=== PATIENT | female | born 1945 | race Caucasian/White ===

== ENCOUNTER 2019-01-04 11:27 | Outpatient (CLI) | payer OTHER | END 2019-01-04 11:40 | disposition home or self-care (01) | LOC: NUCLEAR 11:27 | DX: M81.0 Age-related osteoporosis without current pathological fracture (principal) ==

== ENCOUNTER 2020-12-30 06:58 | Day surgery (SDC) | payer OTHER | END 2020-12-30 10:40 | disposition home or self-care (01) | LOC: AMB-ENDOS 06:58 | PROVIDERS: ATTEND Colon & Rectal Surgery | DX: K62.89 Other specified diseases of anus and rectum (principal); K64.8 Other hemorrhoids; Z20.822 Contact with and (suspected) exposure to COVID-19; Z12.11 Encounter for screening for malignant neoplasm of colon ==

== ENCOUNTER 2021-02-18 08:26 | Outpatient (CLI) | payer OTHER | END 2021-02-18 08:31 | disposition home or self-care (01) | LOC: TOM 08:26 | PROVIDERS: ATTEND Colon & Rectal Surgery | DX: K57.30 Diverticulosis of large intestine without perforation or abscess without bleeding (principal); K92.1 Melena; Z85.048 Personal history of other malignant neoplasm of rectum, rectosigmoid junction, and anus; Z12.11 Encounter for screening for malignant neoplasm of colon; I70.8 Atherosclerosis of other arteries ==

== ENCOUNTER 2021-06-16 12:29 | Outpatient (CLI) | payer OTHER | END 2021-06-16 12:39 | disposition home or self-care (01) | LOC: TOM 12:29 | PROVIDERS: ATTEND Psychiatry & Neurology Clinical Neurophysiology | DX: F01.50 Vascular dementia, unspecified severity, without behavioral disturbance, psychotic disturbance, mood disturbance, and anxiety (principal); G30.1 Alzheimer's disease with late onset ==

== ENCOUNTER 2023-08-18 15:19 | Emergency (ER) | payer OTHER ==
[~2023-08-18] VITALS: Ht 154.9 cm; Wt 49.9 kg
[2023-08-18] MEDS ORDERED: 0.9 % SODIUM CHLORIDE 500 ML IV ONE (16:30)
[2023-08-18 16:58] LABS: HEMATOCRIT 41.2 % (36.0-45.00); HEMOGLOBIN 13.9 g/dL (12.0-15.00); MEAN CELL VOLUME 91.8 fL (80.00-100.00); MEAN CORPUSCULAR HGB CONC 33.8 g/dl (32.0-36.0); PLATELET COUNT 294 K/uL (150-450); RED BLOOD COUNT 4.49 M/uL (4.00-6.00)
[2023-08-18 19:06] LABS: ALBUMIN 3.1 gm/dL (3.4-5.0); BILIRUBIN TOTAL 1.43 mg/dL (0.3-1.2); CALCIUM 9.7 mg/dL (8.5-10.1); CREATININE SERUM 1.18 mg/dL (0.55-1.02); GFR 44.18; GLOBULINA 4.1 G/DL (2.4-3.5); POTASSIUM 3.66 mEq/L (3.5-5.1); TOTAL PROTEIN 7.2 gm/dL (6.4-8.2)
[2023-08-18 21:31] LABS: PH,URINE 5.5 (5.0-8.0); URINE APPEARANCE Cloudy; URINE BILIRRUBIN Small (NEGATIVE); URINE BLOOD NHT; URINE COLOR Dark Yellow; URINE GLUCOSE Negative (NEGATIVE); URINE LEUKOCYTE Small; URINE NITRATE Negative; URINE PROTEIN 30 (NEGATIVE)
[2023-08-18 21:35] LABS: URINE EPITHELIAL CELLS 3.2 uL (0.0-38.8); URINE RBC 100.5 uL (0.0-20.8)
[2023-08-18 21:46] LABS: URINE BACTERIA > 9821.5 uL (0.0-1933); URINE WBC 1.7 uL (0.0-23.2)
[2023-08-18] MEDS ORDERED: CEFTRIAXONE SODIUM 1,000 MG VIAL IV ONE (22:00)
[2023-08-18] MEDS ORDERED: MACRODANTIN100 M1 PO (22:35)
== END 2023-08-18 23:31 ==
LOC: ER 15:19
PROVIDERS: General Practice; Nurse Practitioner Family
DX: N39.0 Urinary tract infection, site not specified (principal); R53.1 Weakness; Z91.041 Radiographic dye allergy status; F03.90 Unspecified dementia, unspecified severity, without behavioral disturbance, psychotic disturbance, mood disturbance, and anxiety; N18.30 Chronic kidney disease, stage 3 unspecified; I73.89 Other specified peripheral vascular diseases; Z20.822 Contact with and (suspected) exposure to COVID-19
CPT/HCPCS: 36415; 70450; 93005; 96365; 96366; 99284; J0696; J7042